=== PATIENT | female | born 1975 | race Caucasian/White ===

== ENCOUNTER 2017-05-15 09:41 | Emergency (ER) | payer MEDICAID ==
[~2017-05-15] VITALS: Ht 160 cm; Wt 69.4 kg
[2017-05-15 09:47] VITALS: Ht 160 cm; Wt 69.4 kg
[2017-05-15 10:25] LABS: BASOPHIL % 0.7 % (0-2); PLATELET COUNT 243 x10^3mcL (130-400)
[2017-05-15 10:33] LABS: CALCIUM 8.9 mg/dL (8.5-10.1); CARBON DIOXIDE 28.1 mmol/L (21-32); CHLORIDE SERUM 102 mmol/L (98-107); CREATININE SERUM 0.7 mg/dL (0.6-1.0); GFR1 > 60 mL/min; GLUCOSE SERUM 101 mg/dL (74-106); POTASSIUM SERUM 3.8 mmol/L (3.5-5.1); SODIUM SERUM 139 mmol/L (136-145)
[2017-05-15 10:38] LABS: ALKALINE PHOSPHATASE 48 U/L (46-116); ALT/SGPT 39 U/L (14-59); AST/SGOT 19 U/L (15-37); BILIRUBIN TOTAL 1.5 mg/dL (0.20-1.00); LIPASE 163 IU/L (73-393); TOTAL PROTEIN, SERUM 7.6 g/dL (6.4-8.2)
[2017-05-15 11:39] VITALS: BP 99/66
== END 2017-05-15 11:43 | disposition home or self-care (01) ==
LOC: ED 09:41
PROVIDERS: Emergency Medicine
DX: R42 Dizziness and giddiness (principal); R10.13 Epigastric pain; R11.0 Nausea
CPT/HCPCS: J8597; Q0162

== ENCOUNTER 2018-01-04 08:37 | Emergency (ER) | payer MEDICAID ==
[~2018-01-04] VITALS: Ht 162.6 cm; Wt 66.2 kg
[2018-01-04 10:01] VITALS: BP 98/69
== END 2018-01-04 10:01 | disposition home or self-care (01) ==
LOC: ED 08:37
DX: R55 Syncope and collapse (principal); R11.0 Nausea; R51 Headache